=== PATIENT | male | born 1990 | race American Indian/Alaskan Native ===

== ENCOUNTER 2017-02-07 22:41 | Emergency (ER) | payer MEDICAID ==
--- NOTE | 2017-02-08 04:04 | Emergency Department Report ---
ED Asthma HPI - General Chief Complaint: Adult Asthma Stated Complaint: ASTHMA WITH COLD Time Seen by Provider: 02/08/17 04:04 Source: patient Mode of arrival: Ambulatory Limitations: No Limitations - History of Present Illness Initial Comments: Patient reports that he has cough and congestion for a week. He said that he has asthma and is out of his inhaler which is albuterol. Patient reports that he is wheezing. Denies any fever or chills. Denies any nausea or vomiting. Denies any shortness of breath or chest pain. No [id number] medication taken. MD Complaint: "asthma attack", wheezing Onset/Timin -: week(s) Asthma History: childhood onset, history of prior ED visit Severity: mild, similar to prior Context: recent URI, ran out of meds Associated Symptoms: dry cough. denies: productive cough, fever, chest pain, hemoptysis, leg edema, syncope Treatments Prior to Arrival: other (none) - Related Data Current Asthma Therapy: inhaled bronchodilator Previous Rx's Medication Instructions Recorded Last Taken Type Albuterol Sulfate [Ventolin HFA] 2 puff IH Q4H PRN 30 Days #1 02/08/17 Unknown Rx [email or web address] Cetirizine HCl [ZyrTEC] 10 mg PO QAM 14 Days #14 capsule 02/08/17 Unknown Rx Fluticasone [Flonase] 1 spray NS QDAY 14 Days #1 bottle 02/08/17 Unknown Rx methylPREDNISolone [Medrol] 4 mg PO QAM 6 Days #1 tab.ds.pk 02/08/17 Unknown Rx Allergies Allergy/AdvReac Type Severity Reaction Status Date / Time No Known Allergies Allergy Unverified 02/07/17 22:45 ED Review of Systems ROS: Stated complaint: ASTHMA WITH COLD Other details as noted in HPI Comment: All other systems reviewed and negative Constitutional: no symptoms reported Eyes: denies: eye pain, eye discharge ENT: congestion (nasal congestion and drainage). denies: ear pain, throat pain Respiratory: cough, wheezing. denies: orthopnea, shortness of breath, SOB with exertion, SOB at rest, stridor Cardiovascular: denies: chest pain, palpitations, edema, syncope Gastrointestinal: denies: abdominal pain, nausea, diarrhea Genitourinary: denies: as per HPI Musculoskeletal: denies: back pain, joint swelling, arthralgia, myalgia Skin: denies: rash Neurological: denies: headache, weakness, numbness, paresthesias, confusion, abnormal gait, vertigo ED Past Medical Hx - Past Medical History Previous Medical History?: Yes Hx Asthma: Yes - Surgical History Past Surgical History?: Yes Additional Surgical History: adnenoidectomy - Family History Family history: no significant - Social History Smoking Status: Former Smoker Substance Use Type: None - Medications Home Medications: Home Medications Medication Instructions Recorded Confirmed Last Taken Type Albuterol Sulfate [Ventolin HFA] 2 puff IH Q4H PRN 30 Days #1 02/08/17 Unknown Rx [email or web address] Cetirizine HCl [ZyrTEC] 10 mg PO QAM 14 Days #14 capsule 02/08/17 Unknown Rx Fluticasone [Flonase] 1 spray NS QDAY 14 Days #1 bottle 02/08/17 Unknown Rx methylPREDNISolone [Medrol] 4 mg PO QAM 6 Days #1 tab.ds.pk 02/08/17 Unknown Rx ED Physical Exam - General Limitations: No Limitations General appearance: alert, in no apparent distress - Head Head exam: Present: atraumatic, normocephalic, normal inspection - Eye Eye exam: Present: normal appearance, PERRL, EOMI Pupils: Present: normal accommodation - ENT ENT exam: Present: normal orophraynx, mucous membranes moist, normal external ear exam, other (bilateral nasal mucosa congested with erythema and clear drainage. No maxillary or frontal sinus tenderness to palpate). Absent: normal exam, TM's normal bilaterally (bilateral TM congested without erythema) - Neck Neck exam: Present: normal inspection, full ROM, other (no C-spine tenderness). Absent: tenderness, meningismus, lymphadenopathy, thyromegaly - Respiratory Respiratory exam: Present: wheezes (scattered wheezing to upper lung meng.), other (dry cough). Absent: normal lung sounds bilaterally, respiratory distress , rales, rhonchi, stridor, chest wall tenderness, accessory muscle use, decreased breath sounds, prolonged expiratory - Cardiovascular Cardiovascular Exam: Present: regular rate, normal rhythm, normal heart sounds. Absent: systolic murmur - GI/Abdominal GI/Abdominal exam: Present: soft, normal bowel sounds. Absent: distended, tenderness, guarding, rebound, rigid, organomegaly, mass, bruit, pulsatile mass - Extremities Exam Extremities exam: Present: normal inspection, full ROM, normal capillary refill , other (no clubbing, cyanosis or edema to extremities. +2 pulses to all extremities. No neurovascular compromise). Absent: tenderness, pedal edema, joint swelling, calf tenderness - Back Exam Back exam: Present: normal inspection, full ROM. Absent: tenderness, CVA tenderness (R), CVA tenderness (L), muscle spasm, paraspinal tenderness, vertebral tenderness, rash noted - Neurological Exam Neurological exam: Present: alert, oriented X3, normal gait - Psychiatric Psychiatric exam: Present: normal affect, normal mood - Skin Skin exam: Present: warm, dry, intact, normal color. Absent: rash ED Course Vital Signs 02/07/17 22:45 Temperature 97.6 F Pulse Rate 95 H Respiratory 18 Rate Blood Pressure 146/91 O2 Sat by Pulse 96 Oximetry - Reevaluation(s) Reevaluation #1: 02/08/17 06:02 Patient given Xopenex 1.25 mg, Atrovent 0.5 mg nebulized in emergency room. He is also given Deltasone 60 mg by mouth. Patient is stable and lungs sounds are clear. ED Medical Decision Making - Medical Decision Making ED course: She presents to emergency room complaining of asthma attack and upper respiratory tract infection with cough, nasal congestion and runny nose. Physical finding for upper respiratory tract infection with cough and congestion. Patient also with scattered wheezes into upper lung meng. He is found to have acute exacerbation of asthma, mild. Patient said he ran out of his inhaler. I discussed with patient that he will need to follow up with his primary care physician in 2-3 days and if he does not have a primary care he needs to follow up with [facility]. Patient was understands discharge diagnosis and treatment plan. He was given Xopenex 1.25 mg and Atrovent 0.5 mg nebulizer, Deltasone 60 mg by mouth with clearing of wheezing. He said he felt much better. Patient discharged home with prescription for Medrol Dosepak, Ventolin HFA, Zyrtec and Flonase Critical care attestation.: If time is entered above; I have spent that time in minutes in the direct care of this critically ill patient, excluding procedure time. ED Disposition Clinical Impression: Upper respiratory infection with cough and congestion Acute asthma exacerbation Qualifiers: Asthma severity: mild Asthma persistence: intermittent Qualified Code(s): J45.21 - Mild intermittent asthma with (acute) exacerbation Disposition: DC-01 TO HOME OR SELFCARE Is pt being admited?: No Does the pt Need Aspirin: No Condition: Stable Instructions: Asthma (ED), Acute Cough (ED), Upper Respiratory Infection in Children (ED) Additional Instructions: Please increase her fluid intake Flush nostrils with saline nasal spray Take Zyrtec and Flonase to help to reduce nasal congestion F/U with primary care physician as instructed and if he do not have one he can follow-up at [facility] He is return to emergency room if you develop increasing wheezing, shortness of breath, chest pain or tightness otherwise please follow up with primary care in 2-3 days Prescriptions: Albuterol Sulfate [Ventolin HFA] 2 puff IH Q4H PRN 30 Days #1 [email or web address] PRN Reason: weheezing and coughing Cetirizine HCl [ZyrTEC] 10 mg PO QAM 14 Days #14 capsule Fluticasone [Flonase] 1 spray NS QDAY 14 Days #1 bottle methylPREDNISolone [Medrol] 4 mg PO QAM 6 Days #1 tab.ds.pk Referrals: PRIMARY CARE, [Primary Care Provider] - 2-3 Days [facility] [Outside] - 2-3 Days Forms: Accompanied Note, Work/School Release Form(ED)
[2017-02-08] MEDS ORDERED: XOPENEX IH ONE (04:41)
[2017-02-08] MEDS ORDERED: DELTASONE PO ONE (04:41)
[2017-02-08] MEDS ORDERED: ATROVENT IH ONE (04:41)
[2017-02-08 06:38] VITALS: BP 142/87
== END 2017-02-08 06:38 | disposition home or self-care (01) ==
LOC: ED 22:41
DX: J45.21 Mild intermittent asthma with (acute) exacerbation (principal); J06.9 Acute upper respiratory infection, unspecified; R09.81 Nasal congestion; Z87.891 Personal history of nicotine dependence
CPT/HCPCS: 94640; 99283; J7512